=== PATIENT | female | born 1960 | race Caucasian/White ===

== ENCOUNTER 2023-05-17 12:02 | Emergency (ER) | payer OTHER ==
[~2023-05-17] VITALS: Ht 170.2 cm; Wt 98.0 kg
[~2023-05-17 12:02] MED LIST: HYDR25TA2 PO; OMEP20CA12 PO
[2023-05-17 12:27] VITALS: BP 140/85; PULSE 88; RESP 16; TEMP 98.2
[2023-05-17] MEDS ORDERED: ONDA-104 PO (15:21)
[2023-05-17] MEDS ORDERED: CORTSUSP AD (15:21)
[2023-05-17] MEDS ORDERED: CEPH-558 PO (15:21)
== END 2023-05-17 16:00 | disposition home or self-care (01) ==
LOC: EMS 12:03
DX: H60.91 Unspecified otitis externa, right ear (principal); R11.10 Vomiting, unspecified; G89.4 Chronic pain syndrome; I10 Essential (primary) hypertension; M79.7 Fibromyalgia; K21.9 Gastro-esophageal reflux disease without esophagitis; Z88.6 Allergy status to analgesic agent
CPT/HCPCS: 99283; Z7502

== ENCOUNTER 2024-03-07 23:25 | Emergency (ER) | payer OTHER ==
[~2024-03-07] VITALS: Ht 170.2 cm; Wt 85.0 kg
[~2024-03-07 23:25] MED LIST changes: +CEPH-558 PO; +CORTSUSP AD; +ONDA-104 PO
[2024-03-07 23:42] VITALS: BP 140/84; PULSE 98; RESP 18; TEMP 98; O2SAT 100
== END 2024-03-08 01:46 | disposition left against medical advice (07) ==
LOC: EMS 23:25
DX: R68.2 Dry mouth, unspecified (principal); Z53.21 Procedure and treatment not carried out due to patient leaving prior to being seen by health care provider